=== PATIENT | male | born 1985 | race Caucasian/White ===

== ENCOUNTER 2024-01-11 12:22 | Emergency (ER) | payer OTHER, SELFPAY ==
[2024-01-11 12:24] VITALS: BP 160/104
--- NOTE | 2024-01-11 12:42 | ED.GENMED ---
History of Present Illness
General
Chief Complaint: Chest Pain
Source: patient
Exam Limitations: none
Time Seen by Provider: 01/11/24 12:40
Nursing documentation reviewed up to this point in time: agreed with
Travel History
Have you had any contact with someone who has COVID-19?: No
Do you have any symptoms of coronavirus? Fever > 100 degrees, chills, cough, shortness of breath, sore throat, loss of taste or smell, muscle aches, or headache?: No
History of Present Illness
History of Present Illness:
38-year-old male with history of anxiety, HTN. He takes no medications. States he noted dark lines under some of his nails, lifted up and saw that it could be a sign of endocarditis so he went to urgent care today and they sent him here for
evaluation.
He has had no recent illnesses, no chest pain, no history of congenital heart problems or valvular problems.
He becomes tearful on examination and admits to being extremely anxious, especially about his health, he frequently marinated's and his thoughts about something being wrong with him although he has no significant past medical history. He says these
thoughts occur mainly when he is idle. He can't seem to stop them.
Past History
Past History
ED Past Medical History: Psychiatric (Severe anxiety, is on no medications)
Social History
Tobacco: Non-smoker
Alcohol: Occasional
Personal:
Living: with family
Employment: Employed
Review of Systems
Review of Systems
Allergies reviewed?: Yes
All Other Systems: ROS reviewed and negative except as documented in HPI and ROS
Constitutional: Denies fever
Respiratory: Denies trouble breathing
Cardiac: Denies chest pain
ABD/GI: Denies abdominal pain, nausea, vomiting or diarrhea
: Denies dysuria or difficulty voiding
Musculoskeletal: Reports no symptoms
Skin: Reports no symptoms
Neurological: Reports no symptoms
Psychiatric: Reports anxiety
Phy Exam
Physical Exam
Physical Exam:
GENERAL: No acute distress. A&Ox3.
CONSTITUTIONAL: Afebrile.
EYES: clear, conjunctivae normal
ENMT: moist mucus membranes, Pharynx nl
RESPIRATORY: Regular respirations, nonlabored, lungs clear.
CARDIOVASCULAR: Regular rate and rhythm, no murmurs, no rubs.
GI: Soft, nontender, normal BS
MUSCULOSKELETAL: Moves with ease. Well perfused.
SKIN: Warm, dry, pink. tiny less than 1 mm black spots at the tips of nails on two of his fingers. Very healthy appearing nailbeds.
PSYCH: Normal mood and affect. Well kept, interactive and appropriate
NEUROLOGIC: Awake, alert and oriented. No focal neurological deficits
Scores
Heart Score for Chest Pain Patients
STEMI patient?: Not applicable
Course
Orders/Labs/Results
Orders:
Orders
01/11/24 12:29
EKG [Electrocardiogram (*1)] Urgent
Reason for Study: Chest Pain
01/11/24 12:30
EKG- Treatment ONCE
01/11/24 13:30
HydrOXYzine [Vistaril] 50 mg IM NOW STA
01/11/24 13:35
Complete Blood Count/With Diff Urgent
Comprehensive Metabolic Panel Urgent
Abnormal Lab Results
01/11/24
13:35
MPV 10.7 H fL
(7.4-10.4)
Absolute Lymphs (auto) 0.9 L 10^3/uL
(1.2-3.4)
Neutrophils % 77.9 H %
(42.2-75.2)
Lymphocytes % 14.6 L %
(20.5-51.1)
Glucose 121 H mg/dl
(70-99)
01/11/24 13:35
01/11/24 13:35
Vital Signs
Initial and Last Documented VS:
Initial Vital Signs
Temp Pulse Resp BP Pulse Ox
98.5 F 109 18 160/104 99
01/11/24 12:24 01/11/24 12:24 01/11/24 12:24 01/11/24 12:24 01/11/24 12:24
Last Documented Vital Signs
Temp Pulse Resp BP Pulse Ox
98.5 F 87 14 139/98 95
01/11/24 12:24 01/11/24 15:08 01/11/24 14:30 01/11/24 15:08 01/11/24 14:30
MDM/Problems Addressed
Differential Diagnosis Includes:
anxiety about health
MDM/Problems Addressed:
38-year-old male with history of anxiety, HTN. He takes no medications. States he noted dark lines under some of his nails, lifted up and saw that it could be a sign of endocarditis so he went to urgent care today and they sent him here for
evaluation.
He has had no recent illnesses, no chest pain, no history of congenital heart problems or valvular problems.
He becomes tearful on examination and admits to being extremely anxious, especially about his health, he frequently marinated's and his thoughts about something being wrong with him although he has no significant past medical history. He says these
thoughts occur mainly when he is idle. He can't seem to stop them.
01/11/2024 1428 PM
CBC normal
CMP normal
Patient given a copy of his lab work to take home so he can see a federal mediator about the fungus on his toes
NO indication of myocarditis. No risk factors.
Clearly and admittedly anxious about his health.
Hydroxyzine IM given
Prescription for hydroxyzine sent to his pharmacy
Encouraged him to follow-up with his doctor to discuss antidepressant/antianxiety medication
He did state he was feeling better after our lengthy discussion about his normal workup here today and reassurance that he has no indication of myocarditis
*EKG
Interpreted by ED Provider?: Yes
EKG Intrepretation Date: 01/11/24
Interpretation: normal
Rate: normal
Rhythm: sinus
[place]: normal axis
Interval: normal interval
QRS Pattern: normal QRS
Ischemia: no ischemia
*Critical Care Note
Total Time (30-74mins, 75-104mins- exclusive of procedures): Not Applicable
ED Attending Note
-
Portions of this chart may have been created with voice recognition software.� Occasional wrong word or��sound alike� substitutions may have occurred due to the inherent limitations of voice recognition software.
Discharge Plan
Departure
Patient Disposition: Home (Routine Discharge)
Date of Disposition: 01/11/24
Time of Disposition: 14:18
Patient with high blood pressure during this ER visit?: Yes
Condition: Good
Discharge Problem:
Anxiety about health
Instructions: Tips to Help You Worry Less, Tips to Help You [place] in Uncertain Times, Anxiety, Adult ED
Prescriptions:
New
hydroxyzine HCl 25 mg tablet
25 mg PO QID PRN (Reason: anxiety) Qty: 20 0RF
Referrals:
Fatou Miller DPM [Active] - Next open appointment
Caio Araiza DO [Family Provider] - Next open appointment
Activity Restrictions/Additional Instructions:
As we discussed, your workup here today shows nothing worrisome.
I gave you the name of a federal mediator to follow-up with for your toenail fungus.
You do not have hemorrhagic nail splinters. 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
You were given Hydroxyzine 50 mg injection here today
I sent a prescription to your pharmacy for hydroxyzine 25 mg to take up to 4 times a day as needed. I gave you enough for a weeks worth. Call your doctor tomorrow and make an appointment
Talk to your doctor about starting on an anti anxiety medication
Interventions
Interventions:
*Risk Screen - Suicide Last Done: 01/11/24 13:04
*General Assessment Last Done: 01/11/24 12:24
*Neglect/Abuse Screening Last Done: 01/11/24 13:04
ED- Fall Risk Assessment Last Done: 01/11/24 13:04
*ED COVID-19 Vaccine History Last Done: 01/11/24 12:24
*Nursing Disposition Last Done: 01/11/24 15:09
ED- Cardiac Assessment Last Done: 01/11/24 13:04
Discharge Date and Time
Discharge Date/Time: 01/11/24 14:30
[2024-01-11 13:10] VITALS: BP 151/99; BMI 31.4
[2024-01-11 13:43] LABS: % Basophils 0.5 % (0-2); % Eosinophils 0.7 % (0-6); % Immature Granulocytes 0.2 % (0-0.5); % Lymphocytes 14.6 % (20.5-51.1); % Monocytes 6.1 % (1.7-9.3); % Neutrophils 77.9 % (42.2-75.2); Absolute Lymphocytes 0.9 10^3/uL (1.2-3.4); Absolute Monocytes 0.4 10^3/uL (0.1-0.6); Absolute Neutrophils 4.8 10^3/uL (1.4-6.5); Hematocrit 42.4 % (39.0-52.0); Hemoglobin 15.1 g/dL (13.0-18.0); Mean Corp Hgb Conc. 35.6 g/dL (33.0-37.0); Mean Corpuscular Hgb 30.6 pg (27.0-31.0); Mean Corpuscular Volume 85.8 fL (80.0-94.0); Mean Platelet Volume 10.7 fL (7.4-10.4); Nucleated Red Blood Cells % 0 % (-); Platelet Count 239 10^3/uL (130-400); Red Blood Cell Count 4.94 10^6/uL (4.70-6.10); Red Cell Dist. Width 11.8 % (11.5-14.5); White Blood Cell Count 6.1 10^3/uL (4.8-10.8)
[2024-01-11] MEDS: VISTARIL 50 MG IM (13:43)
[2024-01-11 14:00] VITALS: BP 139/98
[2024-01-11 14:04] LABS: ALT (SGPT) 23 U/L (0-50); AST (SGOT) 23 U/L (17-59); Albumin 4.5 g/dl (3.5-5.0); Alkaline Phosphatase 54 U/L (38-126); Blood Urea Nitrogen 11 mg/dl (9-20); Calcium 9.7 mg/dl (8.4-10.2); Carbon Dioxide 28 mmol/L (22-30); Chloride 106 mmol/L (98-107); Estimated Creatinine Clearance > 125 ml/min; Glucose 121 mg/dl (70-99); Potassium 4.6 mmol/L (3.5-5.1); Sodium 138 mmol/L (135-145); Total Bilirubin 0.6 mg/dl (0.2-1.3); Total Protein 7.1 g/dl (6.3-8.2); eGFR > 60.00
--- NOTE | 2024-01-11 14:35 | EDRN ---
Discharge instructions given to patient by FLAQUITO Ying.
[2024-01-11 15:08] VITALS: BP 139/98
== END 2024-01-11 14:30 | disposition home or self-care (01) ==
LOC: EMR 12:22
PROVIDERS: Registered Nurse; EMERGENCY PHYSICIAN Student in an Organized Health Care Education/Training Program; FAMILY PHYSICIAN Family Medicine
DX: F41.9 Anxiety disorder, unspecified (principal); I10 Essential (primary) hypertension
CPT/HCPCS: 99284; 96372; 80053; 85025; 93005